=== PATIENT | male | born 1970 | race Caucasian/White ===

== ENCOUNTER 2022-09-15 08:10 | Emergency (ER) | payer SELFPAY ==
[2022-09-15] MEDS ORDERED: Ondansetron 4 MG/2 ML SDV IVPUSH ONE (08:31)
[2022-09-15] MEDS ORDERED: Morphine 4 MG/ML Syringe IVPUSH ONE (08:36)
[2022-09-15] MEDS ORDERED: Sodium Chloride 0.9% 1,000 ML IV ONE (08:36)
[2022-09-15] MEDS: Ketorolac 30 MG/ML SDV IVPUSH ONE ×2 (08:42→08:47)
[2022-09-15 08:48] LABS: BASOPHILS PERCENT AUTO 0.2 % (0.0-1.5); EOSINOPHILS PERCENT AUTO 0.1 % (0.0-7.0); HEMATOCRIT 41.7 % (38.0-50.0); HEMOGLOBIN 14.3 g/dL (13.0-17.0); LYMPHOCYTES ABSOLUTE AUTO 1.1 K/uL (0.6-2.4); LYMPHOCYTES PERCENT AUTO 8.2 % (16.0-40.0); MEAN CORPUSCULAR HEMOGLOBIN 28.1 pg (27.0-32.0); MEAN CORPUSCULAR HGB CONC 34.3 g/dL (31.0-37.0); MEAN CORPUSCULAR VOLUME 81.9 fL (80.0-98.0); MONOCYTES ABSOLUTE AUTO 0.5 K/uL (0.0-0.8); MONOCYTES PERCENT AUTO 3.5 % (0.0-15.0); NEUTROPHILS ABSOLUTE AUTO 11.2 K/uL (1.4-5.7); NRBC ABSOLUTE 0 K/uL; PLATELET COUNT,PLT 272 K/uL (150-400); RED BLOOD CELL COUNT 5.09 M/uL (4.50-5.90); WHITE BLOOD CELL COUNT,WBC 12.74 K/uL (4.0-11.0)
[2022-09-15 09:10] LABS: BILIRUBIN,URINE NEGATIVE (NEGATIVE); COLOR,URINE YELLOW; GLUCOSE,URINE >=1000 mg/dL (NEGATIVE); KETONES,URINE 40 mg/dL (NEGATIVE); LEUKOCYTE ESTERASE,URINE NEGATIVE (NEGATIVE); NITRITE,URINE NEGATIVE (NEGATIVE); OCCULT BLOOD,URINE LARGE (NEGATIVE); PROTEIN,URINE NEGATIVE (NEGATIVE); UROBILINOGEN,URINE 0.2 EU/dL (<2.0)
[2022-09-15 09:10] LABS: A/G RATIO 0.9 (0.9-1.6); ALBUMIN 3.6 g/dL (3.4-5.0); BILIRUBIN TOTAL 0.4 mg/dL (0.2-1.0); CALCIUM 8.4 mg/dL (8.5-10.1); CARBON DIOXIDE,CO2 22.2 mmol/L (21.0-32.0); CREATININE 1.3 mg/dL (0.8-1.3); EST CRCL DRUG DOSING (CG) 67.98 mL/min; POTASSIUM,K 4.3 mmol/L (3.5-5.1); PROTEIN TOTAL,TP 7.7 g/dL (6.4-8.2)
[2022-09-15 09:25] LABS: APPEARANCE,URINE SLT CLOUDY; WBC,URINE 0-2 (0-5/HPF)
[2022-09-15 09:26] LABS: BACTERIA,URINE FEW (NEGATIVE); EPITHELIAL CELLS,URINE OCCASIONAL (NONE-FEW); MUCUS,URINE LIGHT (NONE-MOD)
[2022-09-15] MEDS ORDERED: Iopamidol 755 Mg/ML 100 ML Bottle IVPUSH ONE (09:47)
== END 2022-09-15 10:51 | disposition home or self-care (01) ==
LOC: MW.ED 08:10
DX: N13.2 Hydronephrosis with renal and ureteral calculous obstruction (principal); E11.9 Type 2 diabetes mellitus without complications
CPT/HCPCS: 36415; 72131; 74177; 80053; 81001; 83036; 85025; 93005; 96361; 96374; 96375; 99284; J2270; J2405; J7030; Q9967; 93010; J1885

== ENCOUNTER 2022-10-18 10:42 | Day surgery (SDC) | payer OTHER ==
[2022-10-18] MEDS ORDERED: Acetaminophen/HYDROcodone 325-5 MG Tab PO ONE (11:26)
[2022-10-18] MEDS ORDERED: Diphtheria,Pertussis(Acell),Tetanus Vaccine 0.5 ML Syringe IM ONE (11:26)
[2022-10-18] MEDS ORDERED: Acetaminophen 325 MG Tab PO ONE (11:55)
[2022-10-18] MEDS ORDERED: Sodium Chloride 0.9% 1,000 ML IV ONE (12:05)
[2022-10-18] MEDS ORDERED: Lidocaine 1% with EPINEPHrine 1:100,000 20 ML MDV INJECT ONE (12:49)
[2022-10-18] MEDS ORDERED: Lidocaine 1% with EPINEPHrine 1:100,000 50 ML MDV INJECT ONE (13:15)
[2022-10-18] MEDS ORDERED: Ertapenem 1 GM in Sodium Chloride 0.9% 50 ML IV ONE (14:25)
[2022-10-18] MEDS ORDERED: Bacitracin Oint 28.35 GM Tube ONE (15:37)
[2022-10-18] MEDS ORDERED: Naloxone 0.4 MG/ML SDV IVPUSH PRN (15:49)
[2022-10-18] MEDS ORDERED: Acetaminophen 325 MG Tab PO PRN (15:49)
[2022-10-18] MEDS ORDERED: Acetaminophen/oxyCODONE 325-5 MG Tab PO PRN (15:49)
[2022-10-18] MEDS ORDERED: Sodium Chloride 0.9% 2.5 ML Syringe FLUSH PRN (15:49)
[2022-10-18] MEDS ORDERED: Sodium Chloride 0.9% 20 ML SDV IV PRN (15:49)
[2022-10-18] MEDS ORDERED: Ibuprofen 600 MG Tab PO PRN (15:49)
[2022-10-18] MEDS ORDERED: Morphine 2 MG/ML SYRINGE IVPUSH PRN (15:49)
[2022-10-18] MEDS ORDERED: Sodium Chloride 0.9% 10 ML Syringe FLUSH PRN (15:49)
[2022-10-18] MEDS ORDERED: Bacitracin Oint 28.35 GM Tube TOP SCH (22:00)
== END 2022-10-18 14:57 | disposition left against medical advice (07) ==
LOC: MW.SDS 10:42 → MW.ED 10:42 → MW.SDS 14:27 → MW.MS 14:28 → MW.SDS 14:57
PROVIDERS: ATTEND Surgery
DX: S86.921A Laceration of unspecified muscle(s) and tendon(s) at lower leg level, right leg, initial encounter (principal); R56.9 Unspecified convulsions; E11.9 Type 2 diabetes mellitus without complications; Z98.890 Other specified postprocedural states; V29.99XA Rider (driver) (passenger) of other motorcycle injured in unspecified traffic accident, initial encounter
CPT/HCPCS: 12004; 73590; 90471; 90715; 96365; 99283; A9270; J1335; J3490; J7030; 12002; 99284